=== PATIENT | female | born 1980 | race African-American/Black ===

== ENCOUNTER 2016-09-04 11:20 | Emergency (ER) | payer SELFPAY ==
--- NOTE | 2016-09-04 11:30 | ER Document Report ---
ED Seizure - General Chief Complaint: Probable Seizure Stated Complaint: SEIZURE Notes: The patient is a 36 her old female, past medical history seizure disorder on Depakote, presents with a brief seizure while at work today. She says that she took her Depakote as prescribed and has not missed any doses. Yesterday, she had a mild right-sided headache, similar to prior headaches, and mild left lower quadrant pain, but these symptoms have resolved. On arrival to the emergency room, the patient is wide-awake and complains of no symptoms. She denies hitting her head, numbness, tingling, current headache, difficulty swallowing, chest pain, shortness of breath, nausea or vomiting. - Related Data Allergies/Adverse Reactions: acetaminophen [From Percocet] Allergy (Severe, Verified 07/03/16 13:15) convulsions oxycodone HCl [From Percocet] Allergy (Severe, Verified 07/03/16 13:15) convulsions Past Medical History - General Information source: Patient - Social History Smoking Status: Unknown if Ever Smoked Family History: Reviewed & Not Pertinent - Past Medical History Cardiac Medical History: Denies: Hx Coronary Artery Disease, Hx Heart Attack, Hx Hypertension Pulmonary Medical History: Reports: Hx Asthma Denies: Hx Bronchitis, Hx COPD, Hx Pneumonia Neurological Medical History: Reports: Hx Migraine, Hx Seizures. Denies: Hx Cerebrovascular Accident Musculoskeltal Medical History: Denies Hx Arthritis Past Surgical History: Reports: Hx Section - x2, Hx Gynecologic Surgery - tubal ligation, Hx Hysterectomy. Denies: Hx Pacemaker - Immunizations Hx Diphtheria, Pertussis, Tetanus Vaccination: Yes Review of Systems - Review of Systems Notes: REVIEW OF SYSTEMS: CONSTITUTIONAL: -fevers, -chills EENT: -eye pain, -difficulty swallowing, -nasal congestion CARDIOVASCULAR:-chest pain, -syncope. RESPIRATORY: -cough, -SOB GASTROINTESTINAL: -abdominal pain, -nausea, -vomiting, -diarrhea GENITOURINARY: -dysuria, -hematuria MUSCULOSKELETAL: -back pain, -neck pain SKIN: -rash or skin lesions. HEMATOLOGIC: -easy bruising or bleeding. LYMPHATIC: -swollen, enlarged glands. NEUROLOGICAL: -altered mental status or loss of consciousness, +headache, + seizure PSYCHIATRIC: -anxiety, -depression. ALL OTHER SYSTEMS REVIEWED AND NEGATIVE. Physical Exam - Vital signs Vitals: Temp 98.1 F 09/04/16 11:23 - Notes Notes: PHYSICAL EXAMINATION: GENERAL: Well-appearing, well-nourished and in no acute distress. HEAD: Atraumatic, normocephalic. EYES: Pupils equal round and reactive to light, extraocular movements intact, sclera anicteric, conjunctiva are normal. ENT: nares patent, oropharynx clear without exudates. Moist mucous membranes. NECK: Normal range of motion, supple without lymphadenopathy LUNGS: Breath sounds clear to auscultation bilaterally and equal. No wheezes rales or rhonchi. HEART: Regular rate and rhythm without murmurs ABDOMEN: Soft, nontender, normoactive bowel sounds. No guarding, no rebound. No masses appreciated. EXTREMITIES: Normal range of motion, no pitting or edema. No cyanosis. NEUROLOGICAL: Cranial nerves grossly intact. Normal speech, normal gait. Normal sensory, motor, and reflex exams. PSYCH: Normal mood, normal affect. SKIN: Warm, Dry, normal turgor, no rashes or lesions noted. Course - Re-evaluation Re-evalutation: Patient has a history of seizures and is on Depakote. She has had CT scans and EEGs. Will check Depakote level. Accu-Chek by EMS was 98. Depakote level slightly subtherapeutic. Will provide an extra dose of her Depakote and instruct her to continue her home Depakote dose with follow-up at neurologist this week. - Vital Signs Vital signs: Temp Pulse Resp BP Pulse Ox 98.1 F 123/94 H 100 09/04/16 11:23 09/04/16 12:01 09/04/16 11:38 - Laboratory Laboratory results interpreted by me: 09/04/16 11:35 Valproic Acid 32.3 L Discharge - Discharge Clinical Impression: Recurrent seizures Condition: Good Disposition: HOME, SELF-CARE Additional Instructions: Take the Depakote as prescribed. You must follow-up with the neurologist. Seizure, Known Epileptic You have had a seizure. Seizures may "break through" in an epileptic due to stress of infection or injury, a change in blood chemistry, or drug and alcohol use. Another common cause is failure to take medication as prescribed. Your doctor has evaluated your situation for the likely cause of this seizure. It is important that you follow his advice concerning any medication changes and follow-up care. Further testing of anti-seizure medication levels in your blood may be necessary. 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 This seizure must be reported to the forklift driver 's license bureau. Call the doctor or return if seizures recur, or if new or unusual symptoms arise -- such as severe headache, confusion, excessive sleepiness, local weakness or numbness, neck stiffness, or fever. Referrals: SAMI DICKSON MD [ACTIVE STAFF] - Follow up as needed
[2016-09-04] MEDS ORDERED: DIVALPROEX SODIUM 500 MG TAB.SR.24H PO ONE (12:41)
[2016-09-04 13:09] VITALS: BP 120/90
== END 2016-09-04 13:00 | disposition home or self-care (01) ==
LOC: ER 11:20
DX: R56.9 Unspecified convulsions (principal)
CPT/HCPCS: 36415; 80164; 99284

== ENCOUNTER 2016-12-02 15:19 | Emergency (ER) | payer SELFPAY ==
--- NOTE | 2016-12-02 16:56 | ER Document Report ---
ED Seizure - General Chief Complaint: Probable Seizure Stated Complaint: SEIZURE Time Seen by Provider: 12/02/16 15:31 Notes: Patient was at work today and had a seizure. She is known to have seizures since the age of 8. No known cause for them except epilepsy. She says that she averages 2 or 3 seizures a month, maybe a couple of seizures a week sometimes. Says she is on Depakote 500 mg twice a day and is taking her medicines. She does take them as needed, but recently has been taking them. She thinks that she's been under a lot of stress and that may have something to do with her having seizures. Has had a recent headache and complaining of some headache now. No neurologic deficits. Patient did not bite her tongue. Was not incontinent of urine or stool. Has not been sick recently. No fevers. - Related Data Allergies/Adverse Reactions: acetaminophen [From Percocet] Allergy (Severe, Verified 07/03/16 13:15) convulsions oxycodone HCl [From Percocet] Allergy (Severe, Verified 07/03/16 13:15) convulsions Past Medical History - Social History Smoking Status: Unknown if Ever Smoked Cigarette use (# per day): No Chew tobacco use (# tins/day): No Frequency of alcohol use: None Drug Abuse: None Family History: Reviewed & Not Pertinent Pulmonary Medical History: Reports: Hx Asthma Neurological Medical History: Reports: Hx Migraine, Hx Seizures Past Surgical History: Reports: Hx Section - x2, Hx Gynecologic Surgery - tubal ligation, Hx Hysterectomy - Immunizations Hx Diphtheria, Pertussis, Tetanus Vaccination: Yes Review of Systems - Review of Systems Notes: REVIEW OF SYSTEMS: CONSTITUTIONAL : Denies fever. EENT: Denies eye, ear, nose or mouth or throat pain or other symptoms. CARDIOVASCULAR: Denies chest pain. RESPIRATORY: Denies cough, chest congestion, or shortness of breath. GASTROINTESTINAL: Denies abdominal pain or nausea, vomiting, or diarrhea. GENITOURINARY: Denies difficulty or painful urinating, urinary frequency, blood in urine. MUSCULOSKELETAL: Denies back or neck pain. Denies joint pain or swelling. SKIN: Denies rash or skin lesions. NEUROLOGICAL: Denies any neurologic deficits. Complains of headache headache, but no different than headaches she has had in the past with seizure activity. Denies sensory loss or motor deficits. ALL OTHER SYSTEMS REVIEWED AND NEGATIVE. Physical Exam - Vital signs Vitals: Temp Pulse BP Pulse Ox 97.9 F 105 H 112/83 92 12/02/16 15:32 12/02/16 15:32 12/02/16 15:32 12/02/16 15:32 Interpretation: Normal - Notes Notes: PHYSICAL EXAMINATION: GENERAL: Well-appearing, in no acute distress. Ambulatory without difficulty. Vital signs are all normal. HEAD: Atraumatic, normocephalic. EYES: Pupils equal round and reactive to light, extraocular movements intact. ENT: oropharynx clear without exudates. Moist mucous membranes. Tongue not damaged or injured. NECK: Normal range of motion, supple. LUNGS: Breath sounds clear and equal bilaterally. HEART: Regular rate and rhythm without murmurs. ABDOMEN: Soft, nontender. No guarding or rebound. BACK: No tenderness throughout entire back. EXTREMITIES: Normal range of motion without pain. NEUROLOGICAL: Normal speech, normal gait. Normal sensory, motor, and reflex exams. Awake, alert, and oriented x3. Cranial nerves normal. SKIN: Warm, dry, no rashes. Course - Re-evaluation Re-evalutation: 12/02/16 19:58 There was difficulty obtaining the patient's blood and there was delay in lab coming to assist in the patient said she wanted to leave. She understands that we can't advise her on her medications without checking levels. She says that she just wants to go home and rest. I encouraged her to take her medications as prescribed and follow-up with a local primary care provider. Return if needed for recurrent episodes. - Vital Signs Vital signs: Temp Pulse Resp BP Pulse Ox 97.9 F 88 20 117/83 99 12/02/16 16:54 12/02/16 16:54 12/02/16 16:54 12/02/16 16:54 12/02/16 16:54 Discharge - Discharge Clinical Impression: Seizure Condition: Stable Disposition: HOME, SELF-CARE Additional Instructions: Seizure, Known Epileptic You have had a seizure. Seizures may "break through" in an epileptic due to stress of infection or injury, a change in blood chemistry, or drug and alcohol use. Another common cause is failure to take medication as prescribed. Your doctor has evaluated your situation for the likely cause of this seizure. It is important that you follow his advice concerning any medication changes and follow-up care. Further testing of anti-seizure medication levels in your blood may be necessary. If you have a auto driver's license, it's important that you DO NOT DRIVE until given permission by your physician. This seizure must be reported to the auto driver 's license bureau. Call the doctor or return if seizures recur, or if new or unusual symptoms arise -- such as severe headache, confusion, excessive sleepiness, local weakness or numbness, neck stiffness, or fever. Take your medications as prescribed. Return at any time if you wish to be evaluated further have blood work done today. FOLLOW-UP CARE: If you have been referred to a physician for follow-up care, call the physician s office for an appointment as you were instructed or within the next two days. If you experience worsening or a significant change in your symptoms, notify the physician immediately or return to the Emergency Department at any time for re-evaluation. Return if you have any new or worsening symptoms such as fever, etc. Forms: Return to Work
[2016-12-02 16:57] VITALS: BP 117/83
== END 2016-12-02 17:00 | disposition home or self-care (01) ==
LOC: ER 15:19
DX: R56.9 Unspecified convulsions (principal); Z79.899 Other long term (current) drug therapy
CPT/HCPCS: 99284

== ENCOUNTER 2017-09-08 10:36 | Emergency (ER) | payer SELFPAY ==
[2017-09-08 12:31] LABS: ABSOLUTE BASOPHILS # (AUTO) 0.1 10^3/uL (0.0-0.2); ABSOLUTE EOSINOPHILS # (AUTO) 0.1 10^3/uL (0.0-0.6); ABSOLUTE LYMPHOCYTES (AUTO) 1.2 10^3/uL (0.5-4.7); ABSOLUTE MONOCYTES (AUTO) 0.3 10^3/uL (0.1-1.4); ABSOLUTE NEUT (AUTO) 1.8 10^3/uL (1.7-8.2); BASOPHILS % (AUTO) 1.7 % (0-2); EOSINOPHILS % (AUTO) 2.5 % (0-6); HEMATOCRIT 39.3 % (36.0-47.0); LYMPHOCYTES % (AUTO) 34.7 % (13-45); MEAN CORPUSCULAR HEMOGLOBIN 27.4 pg (27.0-33.4); MEAN CORPUSCULAR VOLUME 83 fl (80-97); MONOCYTES % (AUTO) 9.3 % (3-13); PLATELET COUNT 252 10^3/uL (150-450); RED BLOOD COUNT 4.73 10^6/uL (3.72-5.28); RED CELL DISTRIBUTION WIDTH 14.2 % (11.5-14.0); SEGMENTED NEUTROPHILS % (AUTO) 51.8 % (42-78); TOTAL CELLS COUNTED % (AUTO) 100 %; WHITE BLOOD COUNT 3.4 10^3/uL (4.0-10.5)
[2017-09-08 12:37] LABS: INTERNATIONAL RATION (INR) 0.96; PROTHROMBIN TIME 13.5 SEC (11.4-15.4)
[2017-09-08 12:38] LABS: PARTIAL THROMBOPLASTIN TIME 21.8 SEC (23.5-35.8)
[2017-09-08 12:51] LABS: ALANINE AMINOTRANSFERASE 21 U/L (9-52); ALBUMIN 4.5 g/dL (3.5-5.0); ALKALINE PHOSPHATASE 42 U/L (38-126); ANION GAP 9 (5-19); ASPARTATE AMINO TRANSFERASE 21 U/L (14-36); BILIRUBIN,DIRECT 0.1 mg/dL (0.0-0.4); BILIRUBIN,TOTAL 0.3 mg/dL (0.2-1.3); BLOOD UREA NITROGEN 12 mg/dL (7-20); CALCIUM 9.8 mg/dL (8.4-10.2); CARBON DIOXIDE 29 mmol/L (22-30); CHLORIDE 102 mmol/L (98-107); GLUCOSE 77 mg/dL (75-110); SODIUM 140.2 mmol/L (137-145); TOTAL PROTEIN 7.1 g/dL (6.3-8.2)
[2017-09-08 12:57] LABS: APPEARANCE,URINE CLOUDY; BILIRUBIN,URINE NEGATIVE (NEGATIVE); COLOR,URINE YELLOW; GLUCOSE, URINE NEGATIVE (NEGATIVE); KETONES,URINE NEGATIVE (NEGATIVE); LEUKOCYTE ESTERASE,URINE NEGATIVE (NEGATIVE); NITRITE,URINE NEGATIVE (NEGATIVE); PROTEIN,URINE NEGATIVE (NEGATIVE); URINE SPECIFIC GRAVITY 1.033
--- NOTE | 2017-09-08 13:04 | ER Document Report ---
ED General - General Chief Complaint: Contusion Stated Complaint: BRUISING Time Seen by Provider: 09/08/17 11:19 Mode of Arrival: Ambulatory Information source: Patient Notes: Patient is a 37-year-old female who has a history of seizures and has been on Depakote for years who presents to the ER today for 6 months of bruising all over her body randomly without injury. Patient states that the bruising is slightly tender to touch. Patient denies being on any blood thinners or any other medication except for Maxalt. Patient also states that she has migraines and that the Maxalt that she was prescribed only helped her for approximately 30 minutes at a time and then will give her "lock jaw for 3 days." TRAVEL OUTSIDE OF THE [place] IN LAST 30 DAYS: No - Related Data Allergies/Adverse Reactions: acetaminophen [From Percocet] Allergy (Severe, Verified 07/03/16 13:15) convulsions oxycodone HCl [From Percocet] Allergy (Severe, Verified 07/03/16 13:15) convulsions Past Medical History - General Information source: Patient - Social History Smoking Status: Unknown if Ever Smoked Family History: Reviewed & Not Pertinent - Past Medical History Cardiac Medical History: Denies: Hx Coronary Artery Disease, Hx Heart Attack, Hx Hypertension Pulmonary Medical History: Reports: Hx Asthma Denies: Hx Bronchitis, Hx COPD, Hx Pneumonia Neurological Medical History: Reports: Hx Migraine, Hx Seizures. Denies: Hx Cerebrovascular Accident Musculoskeltal Medical History: Denies Hx Arthritis Past Surgical History: Reports: Hx Section - x2, Hx Gynecologic Surgery - tubal ligation, Hx Hysterectomy. Denies: Hx Pacemaker - Immunizations Hx Diphtheria, Pertussis, Tetanus Vaccination: Yes Review of Systems - Review of Systems Constitutional: No symptoms reported EENT: No symptoms reported Cardiovascular: No symptoms reported Respiratory: No symptoms reported Gastrointestinal: No symptoms reported Genitourinary: No symptoms reported Female Genitourinary: No symptoms reported Musculoskeletal: No symptoms reported Skin: See HPI Hematologic/Lymphatic: No symptoms reported Neurological/Psychological: No symptoms reported Physical Exam - Vital signs Vitals: Temp Pulse Resp BP Pulse Ox 98.6 F 84 14 106/79 100 09/08/17 11:00 09/08/17 11:00 09/08/17 11:00 09/08/17 11:00 09/08/17 11:00 - Notes Notes: PHYSICAL EXAMINATION: GENERAL: Well-appearing and in no acute distress. HEAD: Atraumatic, normocephalic. EYES: Pupils equal round and reactive to light, extraocular movements intact, sclera anicteric, conjunctiva are normal. NECK: Normal range of motion, supple without lymphadenopathy LUNGS: CTAB and equal. No wheezes rales or rhonchi. HEART: Regular rate and rhythm without murmurs ABDOMEN: Soft, no tenderness. No guarding, no rebound BACK: no vertebral tenderness, normal ROM GI/: no CVA tenderness EXTREMITIES: Normal range of motion, no pitting edema. No cyanosis. NEUROLOGICAL: Cranial nerves grossly intact. Normal sensory/motor exams. PSYCH: Normal mood, normal affect. SKIN: Warm, Dry, normal turgor, mild ecchymosis to right anterior shoulder, axilla, left medial ankle, right upper back, left thigh Course - Vital Signs Vital signs: Temp Pulse Resp BP Pulse Ox 98.6 F 84 14 106/79 100 09/08/17 11:00 09/08/17 11:00 09/08/17 11:00 09/08/17 11:00 09/08/17 11:00 - Laboratory Result Diagrams: 09/08/17 12:00 09/08/17 12:00 Laboratory results interpreted by me: 09/08/17 09/08/17 09/08/17 12:00 12:00 12:00 WBC 3.4 L RDW 14.2 H APTT 21.8 L Urine Urobilinogen 2.0 H Urine Ascorbic Acid 40 H Discharge - Discharge Clinical Impression: Bruising, History of seizure Chronic headaches Qualifiers: Headache type: unspecified Intractability: not intractable Qualified Code(s): R51 - Headache Condition: Stable Disposition: HOME, SELF-CARE Additional Instructions: Return immediately for any new or worsening symptoms. Follow up with primary care provider, call tomorrow to make followup appointment. Prescriptions: Ibuprofen [Motrin 800 mg Tablet] 800 mg PO Q8H PRN #30 tab PRN Reason: Promethazine HCl [Phenergan 25 mg Tablet] 1 - 2 tab PO Q6H PRN #30 tablet PRN Reason: Forms: Return to Work Referrals: [facility] [Provider Group] - Follow up as needed [facility] [Provider Group] - Follow up as needed SAMI DICKSON MD [ACTIVE STAFF] - Follow up as needed
[2017-09-08 14:11] VITALS: BP 104/73
== END 2017-09-08 14:12 | disposition home or self-care (01) ==
LOC: ER 10:36
DX: R58 Hemorrhage, not elsewhere classified (principal); J45.909 Unspecified asthma, uncomplicated; G43.909 Migraine, unspecified, not intractable, without status migrainosus; R56.9 Unspecified convulsions; Z79.899 Other long term (current) drug therapy; Z88.5 Allergy status to narcotic agent
CPT/HCPCS: 36415; 80053; 81001; 81025; 85025; 85610; 85730; 99283

== ENCOUNTER 2017-11-07 11:46 | Emergency (ER) | payer SELFPAY ==
--- NOTE | 2017-11-07 12:03 | ER Document Report ---
ED Seizure - General Chief Complaint: Probable Seizure Stated Complaint: POSSIBLE SEIZURE Time Seen by Provider: 11/07/17 11:57 Notes: The patient is a 37-year-old female, past medical history seizures, presents after a witnessed brief grand mal seizure while she was at work today. She did not have time to take her Depakote this morning. Patient's Accu-Chek by EMS was 93. Patient also has a laceration in her lower lip and 2 chipped teeth from the seizure. She used to see Dr. Yang (Neurologist), but she does not have insurance anymore. Denies headache, focal weakness, numbness, tingling, fevers, neck stiffness, neck pain, chest pain, shortness of breath or loss of bowel or bladder. - Related Data Allergies/Adverse Reactions: acetaminophen [From Percocet] Allergy (Severe, Verified 07/03/16 13:15) convulsions oxycodone HCl [From Percocet] Allergy (Severe, Verified 07/03/16 13:15) convulsions Past Medical History - General Information source: Patient - Social History Smoking Status: Unknown if Ever Smoked Family History: Reviewed & Not Pertinent - Past Medical History Cardiac Medical History: Denies: Hx Coronary Artery Disease, Hx Heart Attack, Hx Hypertension Pulmonary Medical History: Reports: Hx Asthma Denies: Hx Bronchitis, Hx COPD, Hx Pneumonia Neurological Medical History: Reports: Hx Migraine, Hx Seizures. Denies: Hx Cerebrovascular Accident Renal/ Medical History: Denies: Hx Peritoneal Dialysis Musculoskeltal Medical History: Denies Hx Arthritis Past Surgical History: Reports: Hx Section - x2, Hx Gynecologic Surgery - tubal ligation, Hx Hysterectomy. Denies: Hx Pacemaker - Immunizations Hx Diphtheria, Pertussis, Tetanus Vaccination: Yes Review of Systems - Review of Systems Notes: REVIEW OF SYSTEMS: CONSTITUTIONAL: -fevers, -chills EENT: -eye pain, -difficulty swallowing, -nasal congestion CARDIOVASCULAR: -chest pain, -syncope. RESPIRATORY: -cough, -SOB GASTROINTESTINAL: -abdominal pain, -nausea, -vomiting, -diarrhea GENITOURINARY: -dysuria, -hematuria MUSCULOSKELETAL: -back pain, -neck pain SKIN: +lower lip laceration HEMATOLOGIC: -easy bruising or bleeding. LYMPHATIC: -swollen, enlarged glands. NEUROLOGICAL: -altered mental status, -headache, -neurologic symptoms, +seizure- like activity PSYCHIATRIC: -anxiety, -depression. ALL OTHER SYSTEMS REVIEWED AND NEGATIVE. Physical Exam - Vital signs Vitals: Temp Resp Pulse Ox 98.1 F 23 H 100 11/07/17 12:18 11/07/17 12:18 11/07/17 12:18 - Notes Notes: PHYSICAL EXAMINATION: GENERAL: Well-appearing, well-nourished and in no acute distress. HEAD: Atraumatic, normocephalic. EYES: Pupils equal round and reactive to light, extraocular movements intact, sclera anicteric, conjunctiva are normal. ENT: Small chips off front two upper teeth, no dentin exposed. I-shaped lower lip laceration without aileen border involvement, nares patent, oropharynx clear without exudates. Moist mucous membranes. NECK: Normal range of motion, supple without lymphadenopathy LUNGS: Breath sounds clear to auscultation bilaterally and equal. No wheezes rales or rhonchi. HEART: Regular rate and rhythm without murmurs ABDOMEN: Soft, nontender, normoactive bowel sounds. No guarding, no rebound. No masses appreciated. EXTREMITIES: Normal range of motion, no pitting or edema. No cyanosis. NEUROLOGICAL: Cranial nerves grossly intact. Normal speech, normal gait. Normal sensory and motor exams. PSYCH: Normal mood, normal affect. SKIN: Warm, Dry, normal turgor, no rashes or lesions noted. Course - Re-evaluation Re-evalutation: Patient is back to baseline. Her Depakote level is negative and provided her with a dose in the ER. She has had a hysterectomy, so she is not . Her lower lip laceration was repaired using absorbable sutures and instructed her about wound care management. Patient no longer has insurance and has not been able follow-up with a neurologist. Gave her a month prescription of her Depakote and will consult case management to help with obtaining outpatient follow-up at a neurologist with lack of insurance. She works at [email or web address]. Given very strict return precautions and she understands. - Vital Signs Vital signs: Temp Pulse Resp BP Pulse Ox 98.1 F 23 H 100 11/07/17 12:18 11/07/17 12:18 11/07/17 12:18 - Laboratory Laboratory results interpreted by me: 11/07/17 12:13 Valproic Acid < 10.0 L Procedures - Laceration/Wound Repair Lower Face Time completed: 13:32 Wound length (cm): 3 Wound's Depth, Shape: Irregular Laceration pre-procedure: Sterile PPE donned, Sterile drapes applied, Shur- Clens applied Anesthetic type: 1% Lidocaine Volume Anesthetic (mLs): 3 Wound explored: Clean Irrigated w/ Saline (mLs): 1,000 Wound Repaired With: Sutures Suture Size/Type: 6:0, Vicryl Number of Sutures: 7 Layer Closure?: No Post-procedure NV exam normal: Yes Complications: No Discharge - Discharge Clinical Impression: Seizure Laceration of lip Qualifiers: Encounter type: initial encounter Qualified Code(s): S01.511A - Laceration without foreign body of lip, initial encounter Condition: Stable Disposition: HOME, SELF-CARE Additional Instructions: Take the Depakote as prescribed and follow-up with the Neurologist. Also follow -up with the dentist for your chipped teeth. If your lip laceration becomes infected, return to the ER. LACERATION CARE: Your laceration has been sutured to keep the skin edges aligned during healing. The time of suture removal depends on the nature and location of your cut. Please follow the care instructions the doctor has outlined for you and return for further care, according to the schedule you've been given. Keep the wound and dressing clean. Unless you were told otherwise, you may shower daily, blotting the wound dry with a clean, unused towel. At other times, If the dressing gets wet or blood soaked, remove it and blot the wound dry, then reapply a new dressing. Unless you were instructed otherwise, dressings should be changed at least daily. If any signs of infection occur (swelling, redness, drainage, increasing tenderness, red streaks, tender lumps in the armpit or groin above the laceration, or fever), see the doctor immediately. SOAP CLEANSING: Gently wash the wound daily using a mild soap (like Ivory, Phisoderm, Neutrogena). Use warm water, rubbing gently until all debris, ooze, and crusting have been washed from the wound. Allow to dry briefly (about 10 minutes) after cleaning. Repeat this cleansing at least three times a day for the first two days and then once or twice a day. ANTIBIOTIC OINTMENT PROTECTION: Your wounds are such that dressing them is not practical or optional. After cleansing, you should apply a thin coating of antibiotic ointment ( Bacitracin, not Neosporin) to the wounds at least three times daily. This lessens infection risk, and may decrease the amount of scarring. Use a q-tip or dull butter knife, not your finger, to apply this ointment. Any debris or ooze which builds up in the ointment should be gently rubbed off with a sterile gauze pad. Harder crusting may need to be gently scrubbed off with a clean wash cloth with soap and warm water, perhaps applying a warm, wet wash cloth to the wound for ten minutes first. Development of redness, severe itching, or blistering may mean allergy to the ointment. See the doctor. FOLLOW-UP CARE: To facilitate a timely removal of your sutures, you may return to the Emergency Department at [facility]. You do not need to call for an appointment, but the best time to come in for suture removal is early in the morning. If you have been referred to another physician for follow-up care, call that physicians office for an appointment as you were instructed. If you experience a significant change in your laceration, or if you are concerned there may be an infection (swelling, redness, drainage, increasing tenderness, red streaks, tender lumps in the armpit or groin above the laceration, or fever) , return to the Emergency Department immediately re-evaluation. Seizure, Known Epileptic You have had a seizure. Seizures may "break through" in an epileptic due to stress of infection or injury, a change in blood chemistry, or drug and alcohol use. Another common cause is failure to take medication as prescribed. Your doctor has evaluated your situation for the likely cause of this seizure. It is important that you follow his advice concerning any medication changes and follow-up care. Further testing of anti-seizure medication levels in your blood may be necessary. If you have a marine engine driver's license, it's important that you DO NOT DRIVE until given permission by your physician. This seizure must be reported to the marine engine driver 's license bureau. Call the doctor or return if seizures recur, or if new or unusual symptoms arise -- such as severe headache, confusion, excessive sleepiness, local weakness or numbness, neck stiffness, or fever. TOOTHACHE: Your pain is due to dental decay. The tooth must be repaired in order for you to feel better. You will, therefore, be referred to a dentist. We do not have dentists on the staff at [facility]. Severe swelling or drainage around a tooth usually means a dental abscess. This also requires evaluation and treatment by the dentist, but antibiotics may be prescribed while awaiting dental treatment. You should be rechecked immediately if you develop major swelling of the face, increasing pain, a lump in the jaw or gums, headache, difficulty swallowing, or fever. FOLLOW-UP CARE: You have been referred for follow-up care to the dentists listed below. Call the dentists office for an appointment as you were instructed or within the next two days. If you experience worsening or a significant change in your symptoms, notify the physician immediately or return to the Emergency Department at any time for re-evaluation. [facility] [address] [place], [place] Tuesday mornings, by appointment [facility] [address] [place] [address] [facility] [place] [address] [facility] [address] [facility] ([facility]) [facility] [address] [email or web address] [address] [place] [address] Tuesday- 8:00am to 5:00 pm Will see patients from other [facility]. Charges based on income and family size and accepts Medicare, Medicaid, and Insurances Will pull molars [facility] [id number] Hours of Operation 8:00 am - 4:30 pm weekdays The following dental offices accept Medicaid: [facility] Dr. Julio Dr. Fierro Dr. Wilson Dr. Perez [place], [place], and [place] oral surgery Dr. Nye ([place]) Dr. Grubbs ([employer]) [facility] Drs. Monroy ([place]) Dr. Andrews ([place]) [facility] Dr. Urbina ([place]) Drs. Guaman and ([place]) Medicaid Care Line Prescriptions: Divalproex Sodium [Depakote] 500 mg PO BID 30 Days tablet.dr Referrals: SAMI DICKSON MD [NO LOCAL MD] - Follow up as needed [facility] [Outside] - Follow up as needed
[2017-11-07] MEDS ORDERED: LIDOCAINE 1% INJ-PF (10 MG/ML) 30 ML SDV INJ ONE (12:58)
[2017-11-07 13:51] VITALS: BP 103/80
== END 2017-11-07 13:53 | disposition home or self-care (01) ==
LOC: ER 11:46
PROC: 0CQ1XZZ Repair Lower Lip, External Approach (ICD-10-PCS; principal; 2017-11-07)
DX: G40.909 Epilepsy, unspecified, not intractable, without status epilepticus (principal); S01.511A Laceration without foreign body of lip, initial encounter; W22.8XXA Striking against or struck by other objects, initial encounter; Z88.6 Allergy status to analgesic agent; Z90.710 Acquired absence of both cervix and uterus
CPT/HCPCS: 36415; 80164; 99284

== ENCOUNTER 2017-11-11 14:43 | Emergency (ER) | payer SELFPAY ==
[2017-11-11] MEDS ORDERED: AMOXICILLIN TR/POT CLAVULANATE 500-125 MG TAB PO ONE (15:51)
--- NOTE | 2017-11-11 15:57 | ER Document Report ---
ED Oral Problem - General Chief Complaint: Mouth Problem Stated Complaint: LIP PAIN Time Seen by Provider: 11/11/17 15:44 Mode of Arrival: Ambulatory Information source: Patient Notes: 37-year-old female presents to ED for complaint of discharge and odor from her bottom lip. She states she was here on Tuesday for a seizure that caused her to fall and split her lip open. She received sutures and to the bottom lip and now it is infected swollen and painful. TRAVEL OUTSIDE OF THE [place] IN LAST 30 DAYS: No - HPI Patient complains to provider of: Other - Swollen bottom lip that is painful and draining Onset: Other - Patient has sutures on Tuesday for a split lip and the pain and swelling started a couple days later. Patient states she was not placed on antibiotics Onset: Gradual Quality of pain: Achy, Sharp Severity: Moderate Pain Level: 2 Sore throat: Moderate Swollen jaw/face: Moderate Associated symptoms: Other - Swollen painful bottom lip with discharge and odor Worsened by: Other Relieved by: Nothing - Movement Similar symptoms previously: No Recently seen / treated by doctor/dentist: Yes - Related Data Allergies/Adverse Reactions: acetaminophen [From Percocet] Allergy (Severe, Verified 07/03/16 13:15) convulsions oxycodone HCl [From Percocet] Allergy (Severe, Verified 07/03/16 13:15) convulsions Past Medical History - General Information source: Patient - Social History Smoking Status: Never Smoker Cigarette use (# per day): No Chew tobacco use (# tins/day): No Smoking Education Provided: No Frequency of alcohol use: None Drug Abuse: None Lives with: Family Family History: Reviewed & Not Pertinent Patient has suicidal ideation: No Patient has homicidal ideation: No - Past Medical History Cardiac Medical History: Reports: None Pulmonary Medical History: Reports: Hx Asthma EENT Medical History: Reports: None Neurological Medical History: Reports: Hx Migraine, Hx Seizures Endocrine Medical History: Reports: None Renal/ Medical History: Reports: None Malignancy Medical History: Reports: None GI Medical History: Reports: None Musculoskeltal Medical History: Reports None Skin Medical History: Reports None Psychiatric Medical History: Reports: None Traumatic Medical History: Reports: None Infectious Medical History: Reports: None Past Surgical History: Reports: Hx Section - x2, Hx Gynecologic Surgery - tubal ligation, Hx Hysterectomy - Immunizations Hx Diphtheria, Pertussis, Tetanus Vaccination: Yes Review of Systems - Review of Systems Constitutional: No symptoms reported EENT: Other - Bottom lip red swollen with purulent drainage no abscess noted sutures are healed Cardiovascular: No symptoms reported Respiratory: No symptoms reported Gastrointestinal: No symptoms reported Genitourinary: No symptoms reported Female Genitourinary: No symptoms reported Musculoskeletal: No symptoms reported Skin: Other - Infected bottom lip laceration with drainage and odor swollen and tender Hematologic/Lymphatic: No symptoms reported Neurological/Psychological: No symptoms reported -: Yes All other systems reviewed and negative Physical Exam - Vital signs Vitals: Temp Pulse Resp BP Pulse Ox 98.8 F 83 16 132/85 H 98 11/11/17 15:04 11/11/17 15:04 11/11/17 15:04 11/11/17 15:04 11/11/17 15:04 Interpretation: Normal - General General appearance: Appears well, Alert - HEENT Head: Normocephalic, Atraumatic Eyes: Normal Pupils: PERRL Ears: Normal External canal: Normal Tympanic membrane: Normal Sinus: Normal Nasal: Normal Mouth/Lips: Other - Bottom lip is swollen red with purulent drainage from healing laceration. Pharynx: Normal Neck: Normal - Respiratory Respiratory status: No respiratory distress Chest status: Nontender Breath sounds: Normal Chest palpation: Normal - Cardiovascular Rhythm: Regular Heart sounds: Normal auscultation Murmur: No - Abdominal Inspection: Normal Distension: No distension Bowel sounds: Normal Tenderness: Nontender Organomegaly: No organomegaly - Back Back: Normal, Nontender - Extremities General upper extremity: Normal inspection, Nontender, Normal color, Normal ROM , Normal temperature General lower extremity: Normal inspection, Nontender, Normal color, Normal ROM , Normal temperature, Normal weight bearing. No: Latosha's sign - Neurological Neuro grossly intact: Yes Cognition: Normal Orientation: AAOx4 [place] Coma Scale Eye Opening: Spontaneous [place] Coma Scale Verbal: Oriented [place] Coma Scale Motor: Obeys Commands Miguel Coma Scale Total: 15 Speech: Normal Motor strength normal: LUE, RUE, LLE, RLE Sensory: Normal - Psychological Associated symptoms: Normal affect, Normal mood - Skin Skin Temperature: Warm Skin Moisture: Dry Skin Color: Normal Course - Re-evaluation Re-evalutation: 11/11/17 16:06 Patient was instructed to use warm salt water soaks to the bottom lip and to use Augmentin as ordered and to complete those until all medications are gone. Patient to follow-up with dentist as soon as the lipid starts healing enough for her to be able to tolerate the dental visit. Patient was discharged home with a prescription for Augmentin and instructions for soaks. Patient instructed to return to the ED or her primary doctor if the swelling or drainage becomes any worse or does not improve with antibiotics. Patient and family verbalized understanding and agreement with treatment plan. - Vital Signs Vital signs: Temp Pulse Resp BP Pulse Ox 98.8 F 81 16 132/85 H 98 11/11/17 15:08 11/11/17 15:08 11/11/17 15:08 11/11/17 15:08 11/11/17 15:08 Discharge - Discharge Clinical Impression: Infected laceration of lip Qualifiers: Encounter type: initial encounter Qualified Code(s): S01.511A - Laceration without foreign body of lip, initial encounter; L08.9 - Local infection of the skin and subcutaneous tissue, unspecified; L08.9 - Local infection of the skin and subcutaneous tissue, unspecified Condition: Stable Disposition: HOME, SELF-CARE Instructions: Family Physicians / Practices Additional Instructions: The laceration to your bottom lip is infected. There is no abscess at this time. Boil a quart of water and add a tablespoon of salt to it STIR cover and let cool when it is just warm enough to not burn you insert 5 cotton iPads or something similar into the water take 1 out put it on your bottom lip and leave until starts to cool throw it away and do the next one and the next one as each colds. Do this 2-3 times a day for the next 4 days. Augmentin Augmentin is a mixture of amoxicillin and clavulanate. Amoxicillin is a member of the penicillin family. It covers the germs likely to cause ear, bronchial, and urinary infections better than plain penicillin. The addition of clavulanate allows it to cover staph infections of the skin, as well as resistant cases of ear and sinus infections. Your physician has chosen Augmentin for you because of the special nature of your situation. Augmentin is best taken with meals. Nausea after taking the medication is rare, but can occur. Diarrhea can occur, particularly in small children. Vaginal yeast infections, and oral thrush in infants are also common. Contact your physician if these problems occur. Allergy to penicillins is common. If you have had an allergic reaction to any drug of the penicillin family, you should never take any other penicillin. Notify your doctor at once if you develop hives, shortness of breath, swelling, or faintness. Take your antibiotics until they are completed do not start because you feel better take until all gone. FOLLOW-UP CARE: If you have been referred to a physician for follow-up care, call the physician s office for an appointment as you were instructed or within the next two days. If you experience worsening or a significant change in your symptoms, notify the physician immediately or return to the Emergency Department at any time for re-evaluation. Call your dentist to schedule an appointment next week after the lip has started to heal and is less painful. Prescriptions: Amox Tr/Potassium Clavulanate [Augmentin 875-125 Tablet] 1 tab PO BID 10 Days tablet Forms: Elevated Blood Pressure, Return to Work
[2017-11-11 16:11] VITALS: BP 111/86
== END 2017-11-11 16:18 | disposition home or self-care (01) ==
LOC: ER 14:43
DX: S01.511A Laceration without foreign body of lip, initial encounter (principal); K08.9 Disorder of teeth and supporting structures, unspecified; L08.9 Local infection of the skin and subcutaneous tissue, unspecified; W19.XXXA Unspecified fall, initial encounter; Z98.51 Tubal ligation status; Z88.6 Allergy status to analgesic agent
CPT/HCPCS: 99282

== ENCOUNTER 2019-06-04 12:17 | Emergency (ER) | payer BC ==
[2019-06-04 12:36] VITALS: BP 136/89
--- NOTE | 2019-06-04 13:04 | ER Document Report ---
ED Medical Screen (RME) - General Chief Complaint: Probable Seizure Stated Complaint: POSSIBLE SEIZURE Time Seen by Provider: 06/04/19 13:00 Primary Care Provider: SAMI DICKSON MD [Primary Care Provider] - Follow up as needed Mode of Arrival: Ambulatory Information source: Patient Notes: Patient is a 39-year-old female with past medical history of seizures presenting after having what she describes as possible seizure activity. Patient reports she was awake during the whole thing but had rhythmic body contractions and movements. She remembers the entire episode, states she did not fall or lose consciousness and did not urinate on herself. Denies any head injury. Patient reports she used to be on seizure medications however she states her neurologist took her off of them and did not restart her on anything else. Patient is alert, oriented, answering all questions appropriately. Patient states she still feels "off". I have greeted and performed a rapid initial assessment of this patient. A comprehensive ED assessment and evaluation of the patient, analysis of test results and completion of the medical decision making process will be conducted by additional ED providers. I have specifically instructed the patient or family members with the patient to immediately return to any nursing staff should anything change in the patient's condition or with their chief complaint. This medical record was dictated with voice recognizing software. There may be grammatical, syntax errors that are unintended. TRAVEL OUTSIDE OF THE [place] IN LAST 30 DAYS: No - Related Data Allergies/Adverse Reactions: acetaminophen [From Percocet] Allergy (Severe, Verified 07/03/16 13:15) convulsions oxycodone HCl [From Percocet] Allergy (Severe, Verified 07/03/16 13:15) convulsions Past Medical History - Social History Frequency of alcohol use: None Drug Abuse: None - Past Medical History Cardiac Medical History: Denies: Hx Coronary Artery Disease, Hx Heart Attack, Hx Hypertension Pulmonary Medical History: Reports: Hx Asthma Denies: Hx Bronchitis, Hx COPD, Hx Pneumonia Neurological Medical History: Reports: Hx Migraine, Hx Seizures. Denies: Hx Cerebrovascular Accident Renal/ Medical History: Denies: Hx Peritoneal Dialysis Musculoskeltal Medical History: Denies Hx Arthritis Past Surgical History: Reports: Hx Section - x2, Hx Gynecologic Surgery - tubal ligation, Hx Hysterectomy. Denies: Hx Pacemaker - Immunizations Hx Diphtheria, Pertussis, Tetanus Vaccination: Yes Physical Exam - Vital signs Vitals: Temp Pulse Resp BP Pulse Ox 99.0 F 72 18 136/89 H 98 06/04/19 12:35 06/04/19 12:35 06/04/19 12:35 06/04/19 12:35 06/04/19 12:35 Course - Vital Signs Vital signs: Temp Pulse Resp BP Pulse Ox 99.0 F 72 18 136/89 H 98 06/04/19 12:35 06/04/19 12:35 06/04/19 12:35 06/04/19 12:35 06/04/19 12:35 Doctor's Discharge - Discharge Referrals: SAMI DICKSON MD [Primary Care Provider] - Follow up as needed
[2019-06-04 14:24] LABS: APPEARANCE,URINE CLEAR; BILIRUBIN,URINE NEGATIVE (NEGATIVE); COLOR,URINE YELLOW; GLUCOSE, URINE NEGATIVE (NEGATIVE); KETONES,URINE NEGATIVE (NEGATIVE); LEUKOCYTE ESTERASE,URINE NEGATIVE (NEGATIVE); NITRITE,URINE NEGATIVE (NEGATIVE); PROTEIN,URINE NEGATIVE (NEGATIVE); URINE SPECIFIC GRAVITY 1.023; UROBILINOGEN,URINE NEGATIVE mg/dL (<2.0)
[2019-06-04 14:29] LABS: ABSOLUTE BASOPHILS # (AUTO) 0.1 10^3/uL (0.0-0.2); ABSOLUTE LYMPHOCYTES (AUTO) 1.4 10^3/uL (0.5-4.7); ABSOLUTE MONOCYTES (AUTO) 0.3 10^3/uL (0.1-1.4); ABSOLUTE NEUT (AUTO) 1.4 10^3/uL (1.7-8.2); BASOPHILS % (AUTO) 1.8 % (0-2); EOSINOPHILS % (AUTO) 1.4 % (0-6); HEMATOCRIT 39.3 % (36.0-47.0); LYMPHOCYTES % (AUTO) 43.9 % (13-45); MEAN CORPUSCULAR HGB CONC 33.2 g/dL (32.0-36.0); MEAN CORPUSCULAR VOLUME 84 fl (80-97); PLATELET COUNT 262 10^3/uL (150-450); RED BLOOD COUNT 4.67 10^6/uL (3.72-5.28); RED CELL DISTRIBUTION WIDTH 13.9 % (11.5-14.0); SEGMENTED NEUTROPHILS % (AUTO) 43.9 % (42-78); TOTAL CELLS COUNTED % (AUTO) 100 %; WHITE BLOOD COUNT 3.2 10^3/uL (4.0-10.5)
[2019-06-04 14:59] LABS: ALBUMIN 4.5 g/dL (3.5-5.0); ALKALINE PHOSPHATASE 44 U/L (38-126); ANION GAP 6 (5-19); ASPARTATE AMINO TRANSFERASE 27 U/L (14-36); BILIRUBIN,DIRECT 0.2 mg/dL (0.0-0.4); BILIRUBIN,TOTAL 0.5 mg/dL (0.2-1.3); BLOOD UREA NITROGEN 14 mg/dL (7-20); CALCIUM 9.5 mg/dL (8.4-10.2); CARBON DIOXIDE 31 mmol/L (22-30); CHLORIDE 102 mmol/L (98-107); GLUCOSE 70 mg/dL (75-110); POTASSIUM 4.3 mmol/L (3.6-5.0); TOTAL PROTEIN 8.3 g/dL (6.3-8.2)
--- NOTE | 2019-06-04 15:46 | ER Document Report ---
ED General - General Chief Complaint: Probable Seizure Stated Complaint: POSSIBLE SEIZURE Time Seen by Provider: 06/04/19 13:00 Primary Care Provider: SAMI DICKSON MD [NO LOCAL MD] - Follow up as needed Mode of Arrival: Ambulatory Notes: patient is a 39-year-old female with a history of seizures who presents to the emergency department with possible seizure-like activity. This morning she felt her muscles moving rapidly. She denies any loss of consciousness. She did not have any loss of bowel or bladder function. Patient admits that she has been working a lot. When asked if she is eating enough, she states that she does not get a lot of time to eat at work. Past medical history includes acne problems. Patient was taken off of seizure medications while ago, and has not had any episodes since. TRAVEL OUTSIDE OF THE [place] IN LAST 30 DAYS: No - Related Data Allergies/Adverse Reactions: acetaminophen [From Percocet] Allergy (Severe, Verified 07/03/16 13:15) convulsions oxycodone HCl [From Percocet] Allergy (Severe, Verified 07/03/16 13:15) convulsions Past Medical History - General Information source: Patient - Social History Smoking Status: Never Smoker Frequency of alcohol use: None Drug Abuse: None Family History: Reviewed & Not Pertinent Patient has suicidal ideation: No Patient has homicidal ideation: No - Past Medical History Cardiac Medical History: Denies: Hx Coronary Artery Disease, Hx Heart Attack, Hx Hypertension Pulmonary Medical History: Reports: Hx Asthma Denies: Hx Bronchitis, Hx COPD, Hx Pneumonia Neurological Medical History: Reports: Hx Migraine, Hx Seizures. Denies: Hx Cerebrovascular Accident Renal/ Medical History: Denies: Hx Peritoneal Dialysis Musculoskeletal Medical History: Denies Hx Arthritis Past Surgical History: Reports: Hx Section - x2, Hx Gynecologic Surgery - tubal ligation, Hx Hysterectomy. Denies: Hx Pacemaker - Immunizations Hx Diphtheria, Pertussis, Tetanus Vaccination: Yes Review of Systems - Review of Systems Notes: REVIEW OF SYSTEMS: CONSTITUTIONAL : Denies recent illness. Denies recent unintentional weight loss. Denies fever, chills, or sweats. EENT: Denies eye, ear, throat, or mouth pain, discharge, or symptoms. Denies nasal or sinus congestion. CARDIOVASCULAR: Denies chest pain. RESPIRATORY: Denies shortness of breath, cough, congestion, difficulty breathing, or wheezing. GASTROINTESTINAL: Denies nausea, vomiting, and diarrhea. Denies abdominal pain. Denies constipation. GENITOURINARY: Denies difficulty urinating, burning, blood in urine, urgency or frequency. MUSCULOSKELETAL: Denies neck and back pain. Denies joint pain or swelling. SKIN: Denies rash, itchiness, or lesions HEMATOLOGIC : Denies easy bruising or bleeding. LYMPHATIC: Denies swollen, painful, enlarged glands. NEUROLOGICAL: See HPI. PSYCHIATRIC: Denies stress, anxiety, alteration in sleep patterns, or depression. All other systems reviewed and negative. Physical Exam - Vital signs Vitals: Temp Pulse Resp BP Pulse Ox 99.0 F 72 18 136/89 H 98 06/04/19 12:35 06/04/19 12:35 06/04/19 12:35 06/04/19 12:35 06/04/19 12:35 - Notes Notes: PHYSICAL EXAMINATION: GENERAL: Appears well, healthy, well-nourished, no acute distress. HEAD: Normocephalic, atraumatic. EYES: PERRL, conjunctiva normal, all extraocular movements intact, sclera nonicteric ENT: Moist mucous membranes. NECK: Supple, no noticeable swelling, redness, rash. Normal range of motion. LUNGS: Equal breath sounds bilaterally and clear to auscultation. No wheezes rales or rhonchi. CARDIOVASCULAR: S1-S2, regular rate, regular rhythm. Radial pulses 2+, normal. ABDOMEN: Normoactive bowel sounds. Soft, nontender, no guarding, no rebound tenderness, and no masses palpated. EXTREMITIES: Normal strength and range of motion, no pitting or edema. No cyanosis. NEUROLOGICAL: Moves all extremities upon command. Strength 5/5 in all extremities. PSYCH: Normal mood, normal affect. SKIN: Warm, dry. No rash, lesions, ulcerations noted. Normal skin turgor. Course - Re-evaluation Re-evalutation: 06/04/19 15:44 Urinalysis unremarkable. Chemistry shows that her blood glucose is 70. I gave her crackers and apple juice. Hematology is unremarkable. I have advised the patient to follow-up with a primary care provider and make sure that she eats well. I also have advised her follow-up with the neurologist to possibly get an EEG done. Patient states that she feels better. At this time, patient is safe for discharge home. I have a very low suspicion for any life-threatening etiology at this time. Follow-up precautions were given. Verbal discharge instructions were given to the patient. They verbalized understanding. They are stable for discharge. - Vital Signs Vital signs: Temp Pulse Resp BP Pulse Ox 99.0 F 72 18 136/89 H 98 06/04/19 12:35 06/04/19 12:35 06/04/19 12:35 06/04/19 12:35 06/04/19 12:35 - Laboratory Result Diagrams: 06/04/19 13:43 06/04/19 13:43 Laboratory results interpreted by me: 06/04/19 06/04/19 13:43 13:43 WBC 3.2 L Absolute Neuts (auto) 1.4 L Carbon Dioxide 31 H Glucose 70 L Total Protein 8.3 H - EKG Interpretation by Me Additional EKG results interpreted by me: 06/04/19 15:45 Sinus rhythm. Rate 70. AK 144; QRS 84; QT 396; QTc 428. No ST elevations or depressions noted. Discharge - Discharge Clinical Impression: Hypoglycemia Condition: Stable Disposition: HOME, SELF-CARE Additional Instructions: You were seen today in the emergency department for possible seizure activity. Your symptoms are most likely due to your blood sugar being low. Please make sure you eat well and stay well-hydrated throughout the day. Please follow-up with a primary care provider. Please also follow-up with a neurologist. You can go on the [facility] website and see who is in network and make a follow-up visit with them. If you have worsening symptoms, or have any symptoms that are worrisome to you, please return to the emergency department. Forms: Return to Work Referrals: SAMI DICKSON MD [NO LOCAL MD] - Follow up in 3-5 days
--- NOTE | 2019-06-05 00:05 | EKG REPORT ---
SEVERITY:- NORMAL ECG - SINUS RHYTHM : Confirmed by: Yu Larsen MD 05-Jun-2019 00:04:27
== END 2019-06-04 16:05 | disposition home or self-care (01) ==
LOC: ER 12:17
DX: E16.2 Hypoglycemia, unspecified (principal); J45.909 Unspecified asthma, uncomplicated; Z88.8 Allergy status to other drugs, medicaments and biological substances; Z88.5 Allergy status to narcotic agent
CPT/HCPCS: 36415; 80053; 81001; 83735; 85025; 93005; 93010; 99284

== ENCOUNTER 2019-07-07 11:24 | Emergency (ER) | payer BC ==
[2019-07-07 11:45] LABS: ABSOLUTE LYMPHOCYTES (AUTO) 1.2 10^3/uL (0.5-4.7); ABSOLUTE MONOCYTES (AUTO) 0.3 10^3/uL (0.1-1.4); BASOPHILS % (AUTO) 0.8 % (0-2); EOSINOPHILS % (AUTO) 0.7 % (0-6); HEMATOCRIT 38.7 % (36.0-47.0); HEMOGLOBIN 12.6 g/dL (12.0-15.5); LYMPHOCYTES % (AUTO) 26.5 % (13-45); MEAN CORPUSCULAR HEMOGLOBIN 27.8 pg (27.0-33.4); MEAN CORPUSCULAR HGB CONC 32.6 g/dL (32.0-36.0); MEAN CORPUSCULAR VOLUME 85 fl (80-97); MONOCYTES % (AUTO) 6.7 % (3-13); PLATELET COUNT 269 10^3/uL (150-450); RED BLOOD COUNT 4.54 10^6/uL (3.72-5.28); RED CELL DISTRIBUTION WIDTH 14.3 % (11.5-14.0); SEGMENTED NEUTROPHILS % (AUTO) 65.3 % (42-78); TOTAL CELLS COUNTED % (AUTO) 100 %; WHITE BLOOD COUNT 4.5 10^3/uL (4.0-10.5)
[2019-07-07 12:08] LABS: ALBUMIN 4.5 g/dL (3.5-5.0); ALKALINE PHOSPHATASE 39 U/L (38-126); ANION GAP 16 (5-19); ASPARTATE AMINO TRANSFERASE 29 U/L (14-36); BILIRUBIN,DIRECT 0.2 mg/dL (0.0-0.4); BILIRUBIN,TOTAL 0.4 mg/dL (0.2-1.3); BLOOD UREA NITROGEN 11 mg/dL (7-20); CALCIUM 9.5 mg/dL (8.4-10.2); CARBON DIOXIDE 22 mmol/L (22-30); CHLORIDE 102 mmol/L (98-107); GLUCOSE 131 mg/dL (75-110); POTASSIUM 4.3 mmol/L (3.6-5.0); TOTAL PROTEIN 8.1 g/dL (6.3-8.2)
[2019-07-07 12:10] LABS: ALCOHOL < 10 mg/dL (NONE DETECTED)
--- NOTE | 2019-07-07 12:35 | RADIOLOGY REPORT (SQ) ---
EXAM DESCRIPTION: CT HEAD WITHOUT COMPLETED DATE/TIME: 07/07/2019 12:23 pm REASON FOR STUDY: LOC unwitnessed, right head pain COMPARISON: 2014 TECHNIQUE: Axial images acquired through the brain without intravenous contrast. Images reviewed wi th bone, brain and subdural windows. Images stored on PACS. All CT scanners at this facility use dose modulation, iterative reconstruction, and/or weight based d osing when appropriate to reduce radiation dose to as low as reasonably achievable (ALARA). [facility]: Dose Right [facility]: CareDose [facility]: Dose Right [facility]: Teradose 4D [facility]: [employer] RADIATION DOSE: CT Rad equipment meets quality standard of care and radiation dose reduction techniq ues were employed. CTDIvol: 53.2 mGy. DLP: 964 mGy-cm. mGy. LIMITATIONS: None. FINDINGS: VENTRICLES: Normal size and contour. CEREBRUM: No masses. No hemorrhage. No midline shift. No evidence for acute infarction. Normal gra y/white matter differentiation. No areas of low density in the white matter. CEREBELLUM: No masses. No hemorrhage. No alteration of density. No evidence for acute infarction. EXTRAAXIAL SPACES: No fluid collections. No masses. ORBITS AND GLOBE: No intra- or extraconal masses. Normal contour of globe without masses. CALVARIUM: No fracture. PARANASAL SINUSES: No fluid or mucosal thickening. SOFT TISSUES: No mass or hematoma. OTHER: No other significant finding. IMPRESSION: NORMAL BRAIN CT WITHOUT CONTRAST. EVIDENCE OF ACUTE STROKE: NO. COMMENT: Quality ID # [id number]: Final reports with documentation of one or more dose reduction techniques (e.g., Automated exposure control, adjustment of the mA and/or kV according to patient size, use of iterative reconstruction technique) TECHNICAL DOCUMENTATION: JOB ID: [id number] [employer]- All Rights Reserved Reading location - IP/workstation name: [email or web address]
[2019-07-07 14:28] LABS: APPEARANCE,URINE SLIGHTLY-CLOUDY; BILIRUBIN,URINE NEGATIVE (NEGATIVE); COLOR,URINE STRAW; GLUCOSE, URINE NEGATIVE (NEGATIVE); KETONES,URINE NEGATIVE (NEGATIVE); LEUKOCYTE ESTERASE,URINE NEGATIVE (NEGATIVE); NITRITE,URINE NEGATIVE (NEGATIVE); PROTEIN,URINE NEGATIVE (NEGATIVE); URINE SPECIFIC GRAVITY 1.008; UROBILINOGEN,URINE NEGATIVE mg/dL (<2.0)
[2019-07-07 14:46] LABS: URINE AMPHETAMINES SCREEN NEGATIVE; URINE BARBITURATES SCREEN NEGATIVE; URINE BENZODIAZEPINES SCREEN NEGATIVE; URINE COCAINE SCREEN NEGATIVE; URINE MARIJUANA (THC) SCREEN NEGATIVE; URINE METHADONE SCREEN NEGATIVE; URINE PHENCYCLIDINE SCREEN NEGATIVE
[2019-07-07] MEDS ORDERED: DIVALPROEX SODIUM 500 MG TAB.SR.24H PO ONE (16:24)
--- NOTE | 2019-07-07 16:29 | ER Document Report ---
ED Seizure - General Chief Complaint: seizures Stated Complaint: POSSIBLE SEIZURE Time Seen by Provider: 07/07/19 15:56 Primary Care Provider: KVNG FLETCHER MD [NO LOCAL MD] - Follow up as needed SHARYN VILLA MD [ACTIVE STAFF] - Follow up as needed KVNG FERNÁNDEZ MD [ACTIVE STAFF] - Follow up as needed GALILEA DAVIS MD [ACTIVE STAFF] - Follow up as needed Mode of Arrival: Ambulatory Information source: Patient Notes: 39-year-old female patient known epileptic presenting to the emergency department after having a seizure at [facility]. Patient reports she stopped taking her Depakote approximately 8 months ago per the advice of her financial compliance examiner. She states since then she has had at least 15 seizures. Patient used to see neurology but states she has not seen them in many years as they "were not doing anything for me". Per EMS patient was found on the ground and was postictal at the time of their arrival. She did not have any loss of control urine function. - Related Data Allergies/Adverse Reactions: acetaminophen [From Percocet] Allergy (Severe, Verified 07/03/16 13:15) convulsions oxycodone HCl [From Percocet] Allergy (Severe, Verified 07/03/16 13:15) convulsions Home Medications: depakote Past Medical History - General Information source: Patient - Social History Smoking Status: Never Smoker Frequency of alcohol use: None Drug Abuse: None Lives with: Alone Family History: Reviewed & Not Pertinent Patient has suicidal ideation: No Patient has homicidal ideation: No - Past Medical History Cardiac Medical History: Denies: Hx Coronary Artery Disease, Hx Heart Attack, Hx Hypertension Pulmonary Medical History: Reports: Hx Asthma Denies: Hx Bronchitis, Hx COPD, Hx Pneumonia Neurological Medical History: Reports: Hx Migraine, Hx Seizures. Denies: Hx Cerebrovascular Accident Renal/ Medical History: Denies: Hx Peritoneal Dialysis Musculoskeletal Medical History: Denies Hx Arthritis Past Surgical History: Reports: Hx Section - x2, Hx Gynecologic Surgery - tubal ligation, Hx Hysterectomy. Denies: Hx Pacemaker - Immunizations Hx Diphtheria, Pertussis, Tetanus Vaccination: Yes Review of Systems - Review of Systems Constitutional: No symptoms reported EENT: No symptoms reported Cardiovascular: No symptoms reported Respiratory: No symptoms reported Gastrointestinal: No symptoms reported Genitourinary: No symptoms reported Female Genitourinary: No symptoms reported Musculoskeletal: No symptoms reported Skin: No symptoms reported Hematologic/Lymphatic: No symptoms reported Neurological/Psychological: Seizure Physical Exam - Vital signs Vitals: Resp BP Pulse Ox 25 H 116/92 H 94 07/07/19 11:33 07/07/19 11:33 07/07/19 11:33 - Notes Notes: PHYSICAL EXAMINATION: GENERAL: Well-appearing, well-nourished and in no acute distress. HEAD: Atraumatic, normocephalic. EYES: Pupils equal round and reactive to light, extraocular movements intact, conjunctiva are normal. ENT: Nares patent, oropharynx clear without exudates. Moist mucous membranes. NECK: Normal range of motion, supple without lymphadenopathy LUNGS: Breath sounds clear to auscultation bilaterally and equal. No wheezes rales or rhonchi. HEART: Regular rate and rhythm without murmurs ABDOMEN: Soft, nontender, nondistended abdomen. No guarding, no rebound. No masses appreciated. Female : deferred Musculoskeletal: Normal range of motion, no pitting or edema. No cyanosis. NEUROLOGICAL: Cranial nerves grossly intact. Normal speech, normal gait. Normal sensory, motor exams PSYCH: Normal mood, normal affect. SKIN: Warm, Dry, normal turgor, no rashes or lesions noted. Course - Re-evaluation Re-evalutation: At the time of my evaluation patient is alert, oriented and reporting that she s topped taking her seizure medication 8 months ago per the advice of her financial compliance examiner. She is not postictal. I have written her prescription to restart her seizure medications and have advised that she see her primary care provider for further management of this. Patient verbalizes understanding and agreement with this plan. Patient will be discharged home in stable condition at this time. - Vital Signs Vital signs: Temp Pulse Resp BP Pulse Ox 98 F 110 H 9 L 121/84 99 07/07/19 16:02 07/07/19 11:40 07/07/19 16:02 07/07/19 16:02 07/07/19 16:02 - Laboratory Result Diagrams: 07/07/19 11:30 07/07/19 11:30 Laboratory results interpreted by me: 07/07/19 07/07/19 07/07/19 11:30 11:30 11:30 RDW 14.3 H Glucose 131 H Valproic Acid < 10.0 L - EKG Interpretation by Me EKG shows normal: Sinus rhythm Rate: Normal Rhythm: NSR When compared to previous EKG there are: No significant change Discharge - Discharge Clinical Impression: Seizure disorder Condition: Stable Disposition: HOME, SELF-CARE Additional Instructions: Seizure You have had a seizure. Seizure disorders (epilepsy) of one sort or another affect about one out of 50 people. The seizure occurs because of abnormal electrical activity in the brain. Seizures may be due to drugs and alcohol, strokes, brain injury, or infection. In the most common form of epilepsy, no cause can be found. You will require further evaluation to determine the cause of your seizure, and to determine whether anti-seizure medication is required. This follow-up testing is important, so please call us if you encounter problems with scheduling of tests or appointments. YOU SHOULD NOT DRIVE until released to do so by your physician. The law requires that seizures be reported to the [place] truck driver's license bureau--a seizure while driving could be catastrophic. Call the doctor if seizures recur, or if you develop new symptoms such as fever, severe headache, stiff neck, confusion or increasing sleepiness, weakness or numbness, or visual problems. Please start taking the medications as prescribed. It is very important that you establish care with a primary care physician for further management of your seizure disorder. Please return to emergency department for any new or worsening symptoms. Prescriptions: Divalproex Sodium [Depakote] 500 mg PO BID #60 tablet.dr Referrals: KVNG FLETCHER MD [NO LOCAL MD] - Follow up as needed GALILEA DAVIS MD [ACTIVE STAFF] - Follow up as needed SHARYN VILLA MD [ACTIVE STAFF] - Follow up as needed KVNG FERNÁNDEZ MD [ACTIVE STAFF] - Follow up as needed
[2019-07-07 16:39] VITALS: BP 121/84
== END 2019-07-07 16:48 | disposition home or self-care (01) ==
LOC: ER 11:24
DX: G40.909 Epilepsy, unspecified, not intractable, without status epilepticus (principal); J45.909 Unspecified asthma, uncomplicated; Z88.8 Allergy status to other drugs, medicaments and biological substances; Z88.6 Allergy status to analgesic agent; Z88.5 Allergy status to narcotic agent
CPT/HCPCS: 36415; 70450; 80053; 80164; 80307; 81001; 83735; 84703; 85025; 99284

== ENCOUNTER 2019-09-03 17:11 | Emergency (ER) | payer BC ==
[2019-09-03 17:32] VITALS: BP 117/75
== END 2019-09-03 22:29 | disposition left against medical advice (07) ==
LOC: ER 17:11
DX: Z53.21 Procedure and treatment not carried out due to patient leaving prior to being seen by health care provider (principal)

== ENCOUNTER 2019-09-08 17:17 | Emergency (ER) | payer BC ==
--- NOTE | 2019-09-08 17:31 | ER Document Report ---
ED Medical Screen (RME) - General Chief Complaint: Headache Stated Complaint: HEADACHE Time Seen by Provider: 09/08/19 17:29 Notes: 39-year-old female presents with fever, headache, abdominal pain, nausea/vomiting/diarrhea/constipation, generalized body aches for the past 3 days. Patient is also complaining of "a lump in her right breast." Lungs clear to auscultation bilaterally. Regular rate and rhythm. Abdomen soft nontender. I have greeted and performed a rapid initial assessment of this patient. A comprehensive ED assessment and evaluation of the patient, analysis of test results and completion of the medical decision making process with be conducted by additional ED providers. TRAVEL OUTSIDE OF THE [place] IN LAST 30 DAYS: No - Related Data Allergies/Adverse Reactions: acetaminophen [From Percocet] Allergy (Severe, Verified 09/08/19 17:28) convulsions oxycodone HCl [From Percocet] Allergy (Severe, Verified 09/08/19 17:28) convulsions Past Medical History - Past Medical History Cardiac Medical History: Denies: Hx Coronary Artery Disease, Hx Heart Attack, Hx Hypertension Pulmonary Medical History: Reports: Hx Asthma Denies: Hx Bronchitis, Hx COPD, Hx Pneumonia Neurological Medical History: Reports: Hx Migraine, Hx Seizures. Denies: Hx Cerebrovascular Accident Renal/ Medical History: Denies: Hx Peritoneal Dialysis Musculoskeltal Medical History: Denies Hx Arthritis Past Surgical History: Reports: Hx Section - x2, Hx Gynecologic Surgery - tubal ligation, Hx Hysterectomy. Denies: Hx Pacemaker - Immunizations Hx Diphtheria, Pertussis, Tetanus Vaccination: Yes Physical Exam - Vital signs Vitals: Temp Pulse Resp BP Pulse Ox 99.2 F 104 H 18 128/76 H 99 09/08/19 17:26 09/08/19 17:09/08/19 17:09/08/19 17:09/08/19 17:26 Course - Vital Signs Vital signs: Temp Pulse Resp BP Pulse Ox 99.2 F 104 H 18 128/76 H 99 09/08/19 17:26 09/08/19 17:26 09/08/19 17:09/08/19 17:09/08/19 17:26
[2019-09-08 18:09] LABS: ABSOLUTE LYMPHOCYTES (AUTO) 0.4 10^3/uL (0.5-4.7); ABSOLUTE MONOCYTES (AUTO) 0.2 10^3/uL (0.1-1.4); ABSOLUTE NEUT (AUTO) 2.5 10^3/uL (1.7-8.2); APPEARANCE,URINE SLIGHTLY-CLOUDY; BASOPHILS % (AUTO) 0.3 % (0-2); BILIRUBIN,URINE NEGATIVE (NEGATIVE); COLOR,URINE YELLOW; EOSINOPHILS % (AUTO) 1.5 % (0-6); GLUCOSE, URINE NEGATIVE (NEGATIVE); HEMATOCRIT 37.4 % (36.0-47.0); HEMOGLOBIN 12.5 g/dL (12.0-15.5); KETONES,URINE NEGATIVE (NEGATIVE); LYMPHOCYTES % (AUTO) 12.9 % (13-45); MEAN CORPUSCULAR HGB CONC 33.4 g/dL (32.0-36.0); MEAN CORPUSCULAR VOLUME 84 fl (80-97); MONOCYTES % (AUTO) 5.1 % (3-13); PLATELET COUNT 290 10^3/uL (150-450); PROTEIN,URINE 30 mg/dL (NEGATIVE); RED BLOOD COUNT 4.45 10^6/uL (3.72-5.28); RED CELL DISTRIBUTION WIDTH 14.3 % (11.5-14.0); SEGMENTED NEUTROPHILS % (AUTO) 80.2 % (42-78); TOTAL CELLS COUNTED % (AUTO) 100 %; URINE SPECIFIC GRAVITY 1.028; WHITE BLOOD COUNT 3.1 10^3/uL (4.0-10.5)
--- NOTE | 2019-09-08 18:23 | RADIOLOGY REPORT (SQ) ---
EXAM DESCRIPTION: CHEST 2 VIEWS COMPLETED DATE/TIME: 09/08/2019 5:55 pm REASON FOR STUDY: fever, body aches, cough COMPARISON: 02/18/2010. EXAM PARAMETERS: NUMBER OF VIEWS: two views TECHNIQUE: Digital Frontal and Lateral radiographic views of the chest acquired. RADIATION DOSE: NA LIMITATIONS: none FINDINGS: LUNGS AND PLEURA: No opacities, masses or pneumothorax. No pleural effusion. MEDIASTINUM AND HILAR STRUCTURES: No masses or contour abnormalities. HEART AND VASCULAR STRUCTURES: Heart normal size. No evidence for failure. BONES: No acute findings. HARDWARE: None in the chest. OTHER: No other significant finding. IMPRESSION: NO ACUTE RADIOGRAPHIC FINDING IN THE CHEST. TECHNICAL DOCUMENTATION: JOB ID: [id number] 2010 [employer]- All Rights Reserved Reading location - IP/workstation name: [email or web address]
[2019-09-08 18:29] LABS: A TYPE INFLUENZA AG NEGATIVE (NEGATIVE); ALKALINE PHOSPHATASE 45 U/L (38-126); ANION GAP 9 (5-19); ASPARTATE AMINO TRANSFERASE 21 U/L (14-36); B INFLUENZA AG NEGATIVE (NEGATIVE); BILIRUBIN,DIRECT 0.2 mg/dL (0.0-0.4); BILIRUBIN,TOTAL 0.3 mg/dL (0.2-1.3); BLOOD UREA NITROGEN 15 mg/dL (7-20); CALCIUM 9.3 mg/dL (8.4-10.2); CARBON DIOXIDE 30 mmol/L (22-30); CHLORIDE 100 mmol/L (98-107); GLUCOSE 91 mg/dL (75-110); POTASSIUM 3.7 mmol/L (3.6-5.0); TOTAL PROTEIN 7.3 g/dL (6.3-8.2)
--- NOTE | 2019-09-08 19:04 | ER Document Report ---
ED General - General Chief Complaint: Flu Symptoms Stated Complaint: HEADACHE Time Seen by Provider: 09/08/19 17:29 Notes: Patient is a 39-year-old -[place] female with past medical history of epilepsy who presents to the emergency department with a chief complaint of flulike symptoms for the past few days. She admits to intermittent headache, pain in the bilateral ears and pressure in the sinuses associated with some postnasal drainage. She admits to 1 episode of vomiting and diarrhea yesterday. Denies any coughing, shortness of breath, chest pain or abdominal pain. Denies any urinary complaints. She also states that she is noted incidentally an area to the right chest wall/breast that is tender and nodular. She states whenever she touches it it makes her feel like she needs to vomit. States that she had a mammogram about 2 years ago that was normal. She does not see a deck builder regularly. She denies any recent change in appetite, change in weight, night sweats, chills or fevers. TRAVEL OUTSIDE OF THE [place] IN LAST 30 DAYS: No - Related Data Allergies/Adverse Reactions: acetaminophen [From Percocet] Allergy (Severe, Verified 09/08/19 17:28) convulsions oxycodone HCl [From Percocet] Allergy (Severe, Verified 09/08/19 17:28) convulsions Home Medications: seizure Past Medical History - Social History Smoking Status: Unknown if Ever Smoked Chew tobacco use (# tins/day): No Frequency of alcohol use: None Drug Abuse: None Family History: Reviewed & Not Pertinent Patient has suicidal ideation: No Patient has homicidal ideation: No - Past Medical History Cardiac Medical History: Denies: Hx Coronary Artery Disease, Hx Heart Attack, Hx Hypertension Pulmonary Medical History: Reports: Hx Asthma Denies: Hx Bronchitis, Hx COPD, Hx Pneumonia Neurological Medical History: Reports: Hx Migraine, Hx Seizures. Denies: Hx Cerebrovascular Accident Renal/ Medical History: Denies: Hx Peritoneal Dialysis Musculoskeletal Medical History: Denies Hx Arthritis Past Surgical History: Reports: Hx Section - x2, Hx Gynecologic Surgery - tubal ligation, Hx Hysterectomy. Denies: Hx Pacemaker - Immunizations Hx Diphtheria, Pertussis, Tetanus Vaccination: Yes Review of Systems - Review of Systems EENT: Ear pain, Sinus pressure Gastrointestinal: Diarrhea, Vomiting Neurological/Psychological: Other - Headache -: Yes All other systems reviewed and negative Physical Exam - Vital signs Vitals: Temp Pulse Resp BP Pulse Ox 99.2 F 104 H 18 128/76 H 99 09/08/19 17:26 09/08/19 17:26 09/08/19 17:26 09/08/19 17:26 09/08/19 17:26 - General General appearance: Appears well, Alert In distress: None - HEENT Head: Normocephalic, Atraumatic Eyes: Normal Conjunctiva: Normal Extraocular movements intact: Yes Eyelashes: Normal Pupils: PERRL Ears: Normal External canal: Normal Tympanic membrane: Bulging. No: Hemotympanum, Injected, Purulent effusion, Retracted Sinus: Normal Nasal: Normal Mouth/Lips: Normal Mucous membranes: Normal Pharynx: Normal Neck: Normal - Respiratory Respiratory status: No respiratory distress Chest status: Other - Tender nodule to the right lateral chest wall, nonspecific Breath sounds: Normal Chest palpation: Normal - Cardiovascular Rhythm: Regular Heart sounds: Normal auscultation - Abdominal Inspection: Normal Distension: No distension Bowel sounds: Normal Tenderness: Nontender Organomegaly: No organomegaly - Neurological Neuro grossly intact: Yes Cognition: Normal Orientation: AAOx4 [place] Coma Scale Eye Opening: Spontaneous Miguel Coma Scale Verbal: Oriented [place] Coma Scale Motor: Obeys Commands [place] Coma Scale Total: 15 Speech: Normal Sensory: Normal - Psychological Associated symptoms: Normal affect, Normal mood - Skin Skin Temperature: Warm Skin Moisture: Dry Skin Color: Normal Course - Re-evaluation Re-evalutation: 09/08/19 19:02 Discussed with patient the importance of outpatient follow-up regarding the right breast/chest wall nodule. She had a normal mammogram 2 years ago however I recommended reevaluation with possible ultrasound. She does not have a deck builder so we will refer for further breast exam and management of the right nodule. She denies any family history of breast cancer. Her history and physical otherwise is consistent with a viral syndrome. Her flu swabs were negative, chest x-ray negative. Work-up largely unremarkable. We discussed supportive care measures and the importance of outpatient follow-up. Advise she return here or any ER immediately with any new, persistent or worsening symptoms. She verbalized understood and agreed. - Vital Signs Vital signs: Temp Pulse Resp BP Pulse Ox 99.2 F 104 H 18 128/76 H 99 09/08/19 17:26 09/08/19 17:26 09/08/19 17:26 09/08/19 17:26 09/08/19 17:26 - Laboratory Result Diagrams: 09/08/19 17:45 09/08/19 17:45 Laboratory results interpreted by me: 09/08/19 09/08/19 17:45 17:45 WBC 3.1 L RDW 14.3 H Lymph % (Auto) 12.9 L Absolute Lymphs (auto) 0.4 L Seg Neutrophils % 80.2 H Urine Protein 30 H Urine Urobilinogen 2.0 H Discharge - Discharge Clinical Impression: Viral syndrome, Breast nodule Condition: Stable Disposition: HOME, SELF-CARE Instructions: Viral Syndrome ([facility]) Additional Instructions: Please follow-up with the FRONT DESK ADMIN as soon as possible for repeat examination and possible outpatient imaging. Return here or any ER immediately with any new, persistent or worsening symptoms. Referrals: OTIS MARKS MD [ACTIVE STAFF] - Follow up as needed
[2019-09-08 19:22] VITALS: BP 110/68
== END 2019-09-08 19:26 | disposition home or self-care (01) ==
LOC: ER 17:17
DX: B34.9 Viral infection, unspecified (principal); N63.0 Unspecified lump in unspecified breast; R51 Headache; H92.03 Otalgia, bilateral; R09.82 Postnasal drip; R11.10 Vomiting, unspecified; R19.7 Diarrhea, unspecified; J45.909 Unspecified asthma, uncomplicated; R09.89 Other specified symptoms and signs involving the circulatory and respiratory systems; Z88.8 Allergy status to other drugs, medicaments and biological substances; Z88.6 Allergy status to analgesic agent; Z88.5 Allergy status to narcotic agent
CPT/HCPCS: 36415; 71046; 80053; 81001; 83690; 84703; 85025; 87804; 99283

== ENCOUNTER 2020-01-26 11:21 | Emergency (ER) | payer BC ==
[2020-01-26] MEDS ORDERED: NORMAL SALINE 500 ML IV ONE (11:53)
[2020-01-26] MEDS ORDERED: KETOROLAC TROMETHAMINE INJ/PF 30 MG/1 ML SDV IV ONE (11:54)
--- NOTE | 2020-01-26 11:56 | ER Document Report ---
ED Seizure - General Chief Complaint: Seizure Stated Complaint: SEIZURE Time Seen by Provider: 01/26/20 11:36 Mode of Arrival: Medic Information source: Patient Notes: This 39-year-old woman presents to the emergency department with a history of a seizure episode which occurred at work today. Apparently known seizure disorder, patient is unable to give the name of the medication that she takes. States that the medication was changed 5 months ago. She apparently fell and had a seizure at work. She thinks it occurred around 11:00. She did injure her lower back and complains of severe pain in the lower back. She rates the pain 10/10 denies radiation of pain into the legs or numbness and tingling in the lower extremities. She has had a history of back pain in the past. - Related Data Allergies/Adverse Reactions: acetaminophen [From Percocet] Allergy (Severe, Verified 01/26/20 12:17) convulsions oxycodone HCl [From Percocet] Allergy (Severe, Verified 01/26/20 12:17) convulsions Past Medical History - Social History Smoking Status: Never Smoker Frequency of alcohol use: None Drug Abuse: None Family History: Reviewed & Not Pertinent Patient has homicidal ideation: No - Past Medical History Cardiac Medical History: Denies: Hx Coronary Artery Disease, Hx Heart Attack, Hx Hypertension Pulmonary Medical History: Reports: Hx Asthma Denies: Hx Bronchitis, Hx COPD, Hx Pneumonia Neurological Medical History: Reports: Hx Migraine, Hx Seizures. Denies: Hx Cerebrovascular Accident Renal/ Medical History: Denies: Hx Peritoneal Dialysis Musculoskeletal Medical History: Denies Hx Arthritis Past Surgical History: Reports: Hx Section - x2, Hx Gynecologic Surgery - tubal ligation, Hx Hysterectomy. Denies: Hx Pacemaker - Immunizations Hx Diphtheria, Pertussis, Tetanus Vaccination: Yes Review of Systems - Review of Systems Notes: Adult review Physical Exam - Vital signs Vitals: Temp 98.9 F 01/26/20 11:34 Course - Vital Signs Vital signs: Temp Pulse Resp BP Pulse Ox 98 F 109 H 17 116/90 H 99 01/26/20 14:41 01/26/20 11:41 01/26/20 14:59 01/26/20 15:00 01/26/20 14:37 - Laboratory Result Diagrams: 01/26/20 12:00 01/26/20 12:00 Laboratory results interpreted by me: 01/26/20 12:00 WBC 3.2 L RDW 14.5 H Discharge - Discharge Clinical Impression: Seizure, Seizure disorder Low back pain Qualifiers: Chronicity: unspecified Back pain laterality: unspecified Sciatica presence: without sciatica Qualified Code(s): M54.5 - Low back pain Condition: Good Disposition: HOME, SELF-CARE Instructions: Seizure, Known Epileptic ([facility]) Additional Instructions: Please get the prescriptions from your pharmacy and restart your seizure medication today. Follow-up with your neurologist as needed. If you are having difficulties or recurrent symptoms return to the emergency department for further evaluation and treatment. HOME CARE INSTRUCTIONS & INFORMATION: Thank you for choosing us for your medical needs. We hope you're satisfied with the care you received. After you leave, you must properly care for your problem and, at the same time, observe its progress. Any condition can change. Some illnesses can change rapidly over hours or days. If your condition worsens, return to the Emergency Department or see your physician promptly. ABOUT YOUR X-RAYS AND EKG'S: If you had an EKG or X-rays taken, they have been read by the Emergency Physician. The X-rays and EKG's will also be read by a Radiologist or Houseman within 24 hours. If discrepancies are noted, you will be notified by telephone. Please be certain the ED has a correct telephone number & address where you can be reached. Also, realize that some fractures or abnormalities do not show up on initial X-rays. If your symptoms continue, see your physician. ABOUT YOUR LABORATORY TEST: If you had laboratory tests, the results have been reviewed by the Emergency Physician. Some test results (for example cultures) may not be available for several days. You will be contacted if any test result shows you need additional treatment. Please be certain the ED has a correct telephone number and address where you can be reached. ABOUT YOUR MEDICATIONS: You will receive instructions on how to take your medicine on the prescription label you receive. Additional information may be provided by the Pharmacy. If you have questions afterwards, call the ED for clarification or further instructions. Some prescribed medications may cause drowsiness. Do not perform tasks such as driving a car or operating machinery without consulting your Pharmacist. If you feel you need a refill of pain medication, your condition will need re-evaluation. Please do not call for a refill of any medication. ABOUT YOUR SIGNATURE: Signature of this document acknowledges to followin. Understanding that you received emergency treatment and that you may be released before al medical problems are known or treated. Please be certain the ED has a correct phone number & address where you can be reached. 2. Acknowledgement that you will arrange for follow-up care as recommended. 3. Authorization for the Emergency Physician to provide information to your follow-up Physician in order to maximize your care. AT ANY TIME, IF YOUR SYMPTOMS CHANGE SIGNIFICANTLY OR WORSEN OR YOU DEVELOP NEW SYMPTOMS, RETURN TO THE EMERGENCY DEPARTMENT IMMEDIATELY FOR RE-EVALUATION. OUR GOAL IS TO PROVIDE EXCELLENT MEDICAL CARE! WE HOPE THAT WE HAVE MET YOUR EXPECTATIONS DURING YOUR EMERGENCY DEPARTMENT VISIT AND THAT YOU FEEL YOU HAVE RECEIVED EXCELLENT CARE! Forms: Return to Work
[2020-01-26 12:08] LABS: ABSOLUTE LYMPHOCYTES (AUTO) 0.7 10^3/uL (0.5-4.7); ABSOLUTE MONOCYTES (AUTO) 0.3 10^3/uL (0.1-1.4); ABSOLUTE NEUT (AUTO) 2.2 10^3/uL (1.7-8.2); BASOPHILS % (AUTO) 0.9 % (0-2); EOSINOPHILS % (AUTO) 0.3 % (0-6); HEMATOCRIT 36.1 % (36.0-47.0); HEMOGLOBIN 12.1 g/dL (12.0-15.5); LYMPHOCYTES % (AUTO) 20.6 % (13-45); MEAN CORPUSCULAR HEMOGLOBIN 28.4 pg (27.0-33.4); MEAN CORPUSCULAR HGB CONC 33.7 g/dL (32.0-36.0); MEAN CORPUSCULAR VOLUME 84 fl (80-97); PLATELET COUNT 318 10^3/uL (150-450); RED BLOOD COUNT 4.28 10^6/uL (3.72-5.28); RED CELL DISTRIBUTION WIDTH 14.5 % (11.5-14.0); SEGMENTED NEUTROPHILS % (AUTO) 70.2 % (42-78); TOTAL CELLS COUNTED % (AUTO) 100 %; WHITE BLOOD COUNT 3.2 10^3/uL (4.0-10.5)
[2020-01-26 12:29] LABS: ALBUMIN 4.3 g/dL (3.5-5.0); ALKALINE PHOSPHATASE 45 U/L (38-126); ANION GAP 7 (5-19); ASPARTATE AMINO TRANSFERASE 21 U/L (14-36); BILIRUBIN,TOTAL 0.4 mg/dL (0.2-1.3); BLOOD UREA NITROGEN 12 mg/dL (7-20); CALCIUM 9.4 mg/dL (8.4-10.2); CARBON DIOXIDE 27 mmol/L (22-30); CHLORIDE 103 mmol/L (98-107); GLUCOSE 93 mg/dL (75-110); POTASSIUM 4.4 mmol/L (3.6-5.0); TOTAL PROTEIN 7.5 g/dL (6.3-8.2)
--- NOTE | 2020-01-26 12:29 | RADIOLOGY REPORT (SQ) ---
EXAM DESCRIPTION: CT LUMBAR SPINE WITHOUT IMAGES COMPLETED DATE/TIME: 01/26/2020 12:16 pm REASON FOR STUDY: Fall/seizure COMPARISON: None. TECHNIQUE: Axial images acquired through the lumbar spine without intravenous contrast. Images revi ewed with lung, soft tissue and bone windows. Reconstructed coronal and sagittal MPR images reviewed . All images stored on PACS. All CT scanners at this facility use dose modulation, iterative reconstruction, and/or weight based d osing when appropriate to reduce radiation dose to as low as reasonably achievable (ALARA). [facility]: Dose Right [facility]: CareDose [facility]: Dose Right [facility]: Teradose 4D [facility]: [facility] RADIATION DOSE: mGy. LIMITATIONS: None. FINDINGS: SEGMENTATION: Normal. No transitional anatomy. ALIGNMENT: Normal. VERTEBRAL BODIES: No fractures. No dislocation. No acute findings. DISCS: No significant protrusions. Study limited by lack of intrathecal contrast. PEDICLES, TRANSVERSE PROCESSES: No fractures. No dislocation. No acute findings. FACETS, POSTERIOR ELEMENTS: No fractures. No dislocation. No spinal stenosis. HARDWARE: None in the spine. VISUALIZED RIBS: No fractures. SOFT TISSUES: No significant or acute finding in adjacent soft tissues. OTHER: No other significant finding. IMPRESSION: No significant findings. TECHNICAL DOCUMENTATION: JOB ID: [id number] [place]-72 Quality ID # [id number]: Final reports with documentation of one or more dose reduction techniques (e.g., Au tomated exposure control, adjustment of the mA and/or kV according to patient size, use of iterative reconstruction technique) 2010 [employer]- All Rights Reserved Reading location - IP/workstation name: [email or web address]
[2020-01-26 12:30] LABS: ALCOHOL < 10 mg/dL (NONE DETECTED)
[2020-01-26 14:18] LABS: APPEARANCE,URINE CLEAR; BILIRUBIN,URINE NEGATIVE (NEGATIVE); COLOR,URINE YELLOW; GLUCOSE, URINE NEGATIVE (NEGATIVE); KETONES,URINE NEGATIVE (NEGATIVE); LEUKOCYTE ESTERASE,URINE NEGATIVE (NEGATIVE); NITRITE,URINE NEGATIVE (NEGATIVE); PROTEIN,URINE NEGATIVE (NEGATIVE); URINE SPECIFIC GRAVITY 1.015; UROBILINOGEN,URINE NEGATIVE mg/dL (<2.0)
[2020-01-26 14:37] LABS: URINE AMPHETAMINES SCREEN NEGATIVE; URINE BARBITURATES SCREEN NEGATIVE; URINE BENZODIAZEPINES SCREEN NEGATIVE; URINE MARIJUANA (THC) SCREEN NEGATIVE; URINE METHADONE SCREEN NEGATIVE
[2020-01-26 14:45] LABS: URINE PHENCYCLIDINE SCREEN NEGATIVE
[2020-01-26 14:52] LABS: URINE COCAINE SCREEN NEGATIVE
[2020-01-26 15:22] VITALS: BP 116/90
== END 2020-01-26 15:57 | disposition home or self-care (01) ==
LOC: ER 11:21
DX: G40.909 Epilepsy, unspecified, not intractable, without status epilepticus (principal); M54.5 Low back pain; Z88.6 Allergy status to analgesic agent
CPT/HCPCS: 99284; 96361; 96374; 36415; 82962; 80307 ×2; 83735; 85025; 80053; 81001; 72131; J1885; J7040

== ENCOUNTER 2020-04-21 10:31 | Emergency (ER) | payer BC ==
[2020-04-21 12:09] LABS: ABSOLUTE EOSINOPHILS # (AUTO) 0.2 10^3/uL (0.0-0.6); ABSOLUTE LYMPHOCYTES (AUTO) 1.5 10^3/uL (0.5-4.7); ABSOLUTE MONOCYTES (AUTO) 0.3 10^3/uL (0.1-1.4); ABSOLUTE NEUT (AUTO) 2.5 10^3/uL (1.7-8.2); BASOPHILS % (AUTO) 0.7 % (0-2); EOSINOPHILS % (AUTO) 5.2 % (0-6); HEMATOCRIT 36.5 % (36.0-47.0); HEMOGLOBIN 12.3 g/dL (12.0-15.5); LYMPHOCYTES % (AUTO) 32.6 % (13-45); MEAN CORPUSCULAR HEMOGLOBIN 28.6 pg (27.0-33.4); MEAN CORPUSCULAR HGB CONC 33.6 g/dL (32.0-36.0); MEAN CORPUSCULAR VOLUME 85 fl (80-97); MONOCYTES % (AUTO) 6.6 % (3-13); PLATELET COUNT 357 10^3/uL (150-450); SEGMENTED NEUTROPHILS % (AUTO) 54.9 % (42-78); TOTAL CELLS COUNTED % (AUTO) 100 %; WHITE BLOOD COUNT 4.6 10^3/uL (4.0-10.5)
[2020-04-21] MEDS ORDERED: MORPHINE SULFATE 10 MG/ML INJ IV ONE (12:35)
[2020-04-21 12:40] LABS: ALBUMIN 4.4 g/dL (3.5-5.0); ALKALINE PHOSPHATASE 58 U/L (38-126); ASPARTATE AMINO TRANSFERASE 27 U/L (14-36); BILIRUBIN,DIRECT 0.3 mg/dL (0.0-0.4); BILIRUBIN,TOTAL 0.4 mg/dL (0.2-1.3); BLOOD UREA NITROGEN 9 mg/dL (7-20); CALCIUM 9.4 mg/dL (8.4-10.2); CARBON DIOXIDE 16 mmol/L (22-30); CHLORIDE 104 mmol/L (98-107); GLUCOSE 136 mg/dL (75-110); POTASSIUM 3.9 mmol/L (3.6-5.0); TOTAL PROTEIN 7.5 g/dL (6.3-8.2)
[2020-04-21 12:49] LABS: ALCOHOL < 10 mg/dL (NONE DETECTED)
[2020-04-21 12:50] LABS: ANION GAP 20 (5-19)
[2020-04-21 13:04] LABS: APPEARANCE,URINE CLEAR; BILIRUBIN,URINE NEGATIVE (NEGATIVE); COLOR,URINE YELLOW; GLUCOSE, URINE NEGATIVE (NEGATIVE); KETONES,URINE NEGATIVE (NEGATIVE); LEUKOCYTE ESTERASE,URINE NEGATIVE (NEGATIVE); NITRITE,URINE NEGATIVE (NEGATIVE); PROTEIN,URINE NEGATIVE (NEGATIVE); URINE SPECIFIC GRAVITY 1.013; UROBILINOGEN,URINE NEGATIVE mg/dL (<2.0)
--- NOTE | 2020-04-21 13:09 | EKG REPORT ---
SEVERITY:- BORDERLINE ECG - SINUS TACHYCARDIA PROBABLE LEFT ATRIAL ABNORMALITY BORDERLINE T ABNORMALITIES, ANTERIOR LEADS : Confirmed by: Avi Obrien MD 21-Apr-2020 13:08:49
[2020-04-21 13:22] LABS: URINE AMPHETAMINES SCREEN NEGATIVE; URINE BARBITURATES SCREEN NEGATIVE; URINE BENZODIAZEPINES SCREEN NEGATIVE; URINE COCAINE SCREEN NEGATIVE; URINE MARIJUANA (THC) SCREEN NEGATIVE; URINE METHADONE SCREEN NEGATIVE; URINE PHENCYCLIDINE SCREEN NEGATIVE
[2020-04-21 14:07] VITALS: BP 125/85
--- NOTE | 2020-04-21 14:33 | ER Document Report ---
ED General - General Chief Complaint: Seizure Stated Complaint: POSSIBLE SEIZURE Time Seen by Provider: 04/21/20 12:12 Primary Care Provider: KAREN SORIANO MD [Primary Care Provider] - Follow up as needed Information source: Patient TRAVEL OUTSIDE OF THE [place] IN LAST 30 DAYS: No - HPI Notes: Patient is brought in from work after a generalized tonic-clonic seizure witnessed by bystanders. She does have a history of tonic-clonic seizures. She just states that her seizure medication was changed 1 month ago to a new medicine. She states she has been taking it like she is supposed to. She states she averages 1-2 seizures per month. She states her last seizure before today was 1 month ago. She denies any other new changes such as new vomiting diarrhea cough or cold symptoms. No new trauma. She states that she has a headache and some upper and lower back pain. She states this is not uncommon after her seizures. This pain appears to be constant. Is worse with movement and better with rest. The back pain radiates across both sides of her back. - Related Data Allergies/Adverse Reactions: acetaminophen [From Percocet] Allergy (Severe, Verified 04/21/20 12:14) convulsions oxycodone HCl [From Percocet] Allergy (Severe, Verified 04/21/20 12:14) convulsions Past Medical History - General Information source: Patient - Social History Smoking Status: Never Smoker Frequency of alcohol use: None Drug Abuse: None Family History: Reviewed & Not Pertinent - Past Medical History Cardiac Medical History: Denies: Hx Coronary Artery Disease, Hx Heart Attack, Hx Hypertension Pulmonary Medical History: Reports: Hx Asthma Denies: Hx Bronchitis, Hx COPD, Hx Pneumonia Neurological Medical History: Reports: Hx Migraine, Hx Seizures. Denies: Hx Cerebrovascular Accident Renal/ Medical History: Denies: Hx Peritoneal Dialysis Musculoskeletal Medical History: Denies Hx Arthritis Past Surgical History: Reports: Hx Section - x2, Hx Gynecologic Surgery - tubal ligation, Hx Hysterectomy. Denies: Hx Pacemaker - Immunizations Hx Diphtheria, Pertussis, Tetanus Vaccination: Yes Review of Systems - Review of Systems Constitutional: denies: Chills, Fever Cardiovascular: denies: Chest pain, Palpitations Respiratory: denies: Cough, Short of breath -: Yes All other systems reviewed and negative Physical Exam - Vital signs Vitals: Temp 98.5 F 04/21/20 10:46 Interpretation: Normal - General General appearance: Appears well, Alert - HEENT Head: Normocephalic, Atraumatic Eyes: Normal Pupils: PERRL - Respiratory Respiratory status: No respiratory distress Chest status: Nontender Breath sounds: Normal Chest palpation: Normal - Cardiovascular Rhythm: Regular Heart sounds: Normal auscultation Murmur: No - Abdominal Inspection: Normal Distension: No distension Bowel sounds: Normal Tenderness: Nontender Organomegaly: No organomegaly - Back Back: Normal. No: Vertebra tenderness - Extremities General upper extremity: Normal inspection, Nontender, Normal color, Normal ROM, Normal temperature General lower extremity: Normal inspection, Nontender, Normal color, Normal ROM, Normal temperature, Normal weight bearing. No: Latosha's sign - Neurological Neuro grossly intact: Yes Cognition: Normal Orientation: AAOx4 Miguel Coma Scale Eye Opening: Spontaneous Miguel Coma Scale Verbal: Oriented Miguel Coma Scale Motor: Obeys Commands Hanson Coma Scale Total: 15 Speech: Normal Motor strength normal: LUE, RUE, LLE, RLE Sensory: Normal - Psychological Associated symptoms: Normal affect, Normal mood - Skin Skin Temperature: Warm Skin Moisture: Dry Skin Color: Normal Course - Re-evaluation Re-evalutation: 04/21/20 14:33 Patient with known seizure disorder presents after a seizure. She states that she has had no recent infections or traumas. Her laboratories are unremarkable. Her exam is unremarkable. She complains of some back pain bilaterally but she has no spinal tenderness. I do not see any reason for a CT exam at this time. Patient does have an appoint with her neurologist tomorrow. - Vital Signs Vital signs: Temp Pulse Resp BP Pulse Ox 98.5 F 96 16 125/85 100 04/21/20 10:46 04/21/20 10:58 04/21/20 14:01 04/21/20 14:01 04/21/20 13:23 - Laboratory Result Diagrams: 04/21/20 10:15 04/21/20 10:15 Laboratory results interpreted by me: 04/21/20 04/21/20 10:15 12:40 Carbon Dioxide 16 L Anion Gap 20 H Glucose 136 H Urine Ascorbic Acid 20 H Discharge - Discharge Clinical Impression: Seizure Condition: Stable Disposition: HOME, SELF-CARE Instructions: Seizure, Known Epileptic ([facility]) Additional Instructions: Please follow-up with neurology tomorrow as scheduled Forms: Return to Work Referrals: KAREN SORIANO MD [Primary Care Provider] - Follow up as needed
== END 2020-04-21 15:11 | disposition home or self-care (01) ==
LOC: ER 10:31
DX: G40.909 Epilepsy, unspecified, not intractable, without status epilepticus (principal); Z79.899 Other long term (current) drug therapy; R51 Headache; M54.5 Low back pain; M54.9 Dorsalgia, unspecified; J45.909 Unspecified asthma, uncomplicated; Z88.8 Allergy status to other drugs, medicaments and biological substances; Z88.6 Allergy status to analgesic agent; Z88.5 Allergy status to narcotic agent
CPT/HCPCS: 93005; 99284; 96374; 36415; 80307 ×2; 83735; 84703; 85025; 80053; 81001; 93010; J2270